=== PATIENT | male | born 1955 | race Caucasian/White ===

== ENCOUNTER 2022-11-03 13:42 | Emergency (ER) | payer OTHER ==
[2022-11-03] MEDS ORDERED: IBUPROFEN 400 MG TABLET (FP) PO ONE ×2 (14:35→14:36)
[2022-11-03] MEDS ORDERED: ceFAZolin 2 GRAM PREMIX BAG IVPB ONE (14:37)
[2022-11-03 14:45] VITALS: BP 136/88; PULSE 89; RESP 20; TEMP 98.3; BMI 27.0
[2022-11-03] MEDS ORDERED: ceFAZolin SODIUM 1 GM VIAL ONE (14:50)
== END 2022-11-03 16:15 | disposition home or self-care (01) ==
LOC: FER 13:42
PROC: 3E03329 Introduction of Other Anti-infective into Peripheral Vein, Percutaneous Approach (ICD-10-PCS; principal; 2022-11-03)
PROC: 0XQRXZZ Repair Left Middle Finger, External Approach (ICD-10-PCS; 2022-11-03)
DX: S62.632A Displaced fracture of distal phalanx of right middle finger, initial encounter for closed fracture (principal); W31.2XXA Contact with powered woodworking and forming machines, initial encounter
CPT/HCPCS: 73140-TC-RT-FY; 99284-25